=== PATIENT | male | born 1930 | race Caucasian/White ===

== ENCOUNTER → 2016-06-06 | Outpatient (CLI) | payer MEDICARE, BC ==
[~2016-06-06] MED LIST: CELE200C PO; COMMODE 3:1; ENAL10TA7 PO; GABA300C3 PO; HYDR-2768 PO; HYDR25TA5 PO; LUPR3.75 IM; MACR100C2 PO; METO50TA11 PO; OMEP20TA PO; PRAD150C PO; PRED-1 PO; TERA2CAP3 PO; WARF5TAB PO; WARF7.5T4 PO; [UNRECOGNIZED DRUG - CODE] IM
== END ==
LOC: CLAB 06:40
PROVIDERS: ATTEND Internal Medicine Cardiovascular Disease
DX: I48.91 Unspecified atrial fibrillation (principal)
CPT/HCPCS: 36415; 85610

== ENCOUNTER → 2016-06-07 | Outpatient (CLI) | payer MEDICARE, BC ==
[2016-06-07 07:12] LABS: INTERNATIONAL NORMALIZED RATIO 1.5 RATIO
== END ==
LOC: CLAB 06:45
PROVIDERS: ATTEND Internal Medicine Cardiovascular Disease
DX: I48.91 Unspecified atrial fibrillation (principal)
CPT/HCPCS: 36415; 85610

== ENCOUNTER → 2016-06-13 | Outpatient (CLI) | payer MEDICARE, BC ==
[2016-06-13 07:32] LABS: INTERNATIONAL NORMALIZED RATIO 2.6 RATIO; PROTHROMBIN TIME - PATIENT 30.1 SEC (9.8-11.6)
== END ==
LOC: CLAB 06:57
PROVIDERS: ATTEND Internal Medicine Cardiovascular Disease
DX: I48.91 Unspecified atrial fibrillation (principal)
CPT/HCPCS: 36415; 85610

== ENCOUNTER 2016-08-28 12:34 | Emergency (ER) | payer MEDICARE, BC ==
[~2016-08-28] VITALS: Ht 180.3 cm; Wt 90.0 kg
[~2016-08-28 12:34] MED LIST changes: -HYDR25TA5 PO; -LUPR3.75 IM; -MACR100C2 PO; -METO50TA11 PO; -PRAD150C PO
[2016-08-28 12:39] VITALS: BP 147/77; PULSE 76; RESP 15; TEMP 97.8; O2SAT 98
[2016-08-28 14:43] LABS: AUTOMATED NEUTROPHIL # 4.8 TH/MM3 (1.8-7.7); BASOPHIL # 0.1 TH/MM3 (0-0.2); BASOPHIL % 0.6 % (0.0-2.0); EOSINOPHIL # 0.3 TH/MM3 (0-0.4); EOSINOPHIL % 3.3 % (0.0-4.0); HEMATOCRIT 38.4 % (39.0-51.0); LYMPH % 39.9 % (9.0-44.0); LYMPHOCYTE # 3.9 TH/MM3 (1.0-4.8); MEAN CELL VOLUME 91.5 FL (80.0-100.0); MEAN CORPUSCULAR HEMOGLOBIN 30.2 PG (27.0-34.0); MONO % 6.9 % (0.0-8.0); NEUT % 49.3 % (16.0-70.0); PLATELET COUNT 98 TH/MM3 (150-450); RED BLOOD COUNT 4.19 MIL/MM3 (4.50-5.90); RED CELL DISTRIBUTION WIDTH 14.2 % (11.6-17.2); WHITE BLOOD COUNT 9.7 TH/MM3 (4.0-11.0)
[2016-08-28 14:47] LABS: HEMO FLAGS AUTO DIFF
[2016-08-28 15:00] LABS: BICARBONATE 29.9 MEQ/L (21.0-32.0); POTASSIUM 3.7 MEQ/L (3.5-5.1)
[2016-08-28 15:23] LABS: PLATELET ESTIMATE SMEAR LOW (NORMAL); PLATELET MORPHOLOGY NORMAL (NORMAL); SCAN/DIFF AUTO DIFF CONFIRMED
[2016-08-28 15:55] VITALS: BP 128/67; PULSE 86; RESP 17; O2SAT 99
[2016-08-28 16:07] LABS: BACTERIA, URINE FEW /hpf; BLOOD, URINE LARGE (NEG); GLUCOSE,URINE NEG (NEG); KETONE, URINE 10 mg/dL (NEG)
[2016-08-28 16:08] LABS: URINE COLOR DARK-RED (YELLW/STRAW)
[2016-08-28 16:20] LABS: NITRITE,URINE POS (NEG)
[2016-08-28] MEDS ORDERED: MACR100C2 PO ×2 (16:20→16:23)
--- NOTE | 2016-08-28 16:20 | PD ---
HPI Chief Complaint: Complaint Time Seen by Provider: 14:16 Travel History International Travel<30 days: No Contact w/Intl Traveler<30days: No Traveled to known affect area: No History of Present Illness HPI This is an 86-year-old male who presents to the emergency department with 10 days of aubrey hematuria described as dark blood in his urine, constant, moderate severity. He denies any associated lightheadedness or dizziness. He did start Pradaxa 6 weeks ago. He has a history of prostate cancer for which she follows with Dr. Shields. He doesn't follow with a urologist. He has never had radiation to the prostate. PFSH Past Medical History Hx Anticoagulant Therapy: Yes (coumidin) Arthritis: Yes Asthma: No Atrial Fibrillation: Yes Autoimmune Disease: No Blood Disorders: No Anxiety: No Depression: No Heart Rhythm Problems: Yes (ATRIAL FIB) Cancer: Yes (PROSTATE,LYMPHOMA,COLON) Cardiovascular Problems: Yes High Cholesterol: No Chemotherapy: No Chest Pain: No Congestive Heart Failure: No COPD: No Cerebrovascular Accident: No Diabetes: Yes Patient Takes Glucophage: Yes Diminished Hearing: No Endocrine: No GERD: No Genitourinary: Yes ( PROSTATE CANCER, TURP) Hepatitis: No Hiatal Hernia: No Hypertension: Yes Immune Disorder: No Implanted Vascular Access Dvce: Yes Kidney Stones: No Musculoskeletal: Yes (ARTHRITIS; NECK PAIN) Neurologic: No Psychiatric: No Reproductive: No Respiratory: No Migraines: No Myocardial Infarction: No Radiation Therapy: No Renal Failure: No Seizures: No Sickle Cell Disease: No Sleep Apnea: No Thyroid Disease: No Ulcer: No Tetanus Vaccination: Unknown Influenza Vaccination: Yes Past Surgical History Abdominal Surgery: Yes (COLON RESECTION) AICD: No Arteriovenous Shunt: No Body Medical Devices: NECK FUSION Cardiac Surgery: No Cholecystectomy: Yes Ear Surgery: No Endocrine Surgery: No Eye Surgery: Yes (TAMMY CATARACT EXTRACTION) Genitourinary Surgery: Yes (TURP) Gynecologic Surgery: No Insulin Pump: No Joint Replacement: Yes (BILATERAL KNEES) Neurologic Surgery: Yes (CERVICAL FUSION) Oral Surgery: No Pacemaker: No Thoracic Surgery: No Other Surgery: Yes (LEFT HIP JUL 2014) Social History Alcohol Use: Yes (OCCASIONALLY) Tobacco Use: No Substance Use: No Allergies-Medications (Allergen,Severity, Reaction): Coded Allergies: No Known Allergies (Unverified , 08/28/16) Reported Meds & Prescriptions Reported Meds & Active Scripts Active Omeprazole 20 mg (Omeprazole) 20 Mg Tab 1 Tab PO DAILY Celebrex (Celecoxib) 200 Mg Cap 200 Mg PO DAILY 7 Days Terazosin Hcl (Terazosin HCl) 2 Mg Cap 2 Mg PO HS Prednisolone 5 Mg Tab 5 Mg PO DAILY Hctz (Hydrochlorothiazide) 25 Mg Tab 25 Mg PO HS Commode 3:1 (Device) Device 1 Ea Reported Gabapentin 300 Mg Cap 300 Mg PO BID Enalapril Maleate 10 Mg Tab 20 Mg PO BID Lupron Depot (Leuprolide Acetate) 3.75 Mg Inj 3.75 Mg IM EVERY 3 MONTHS Warfarin Sodium 5 mg (Warfarin Sodium) 5 Mg Tab 5 Mg PO M, W, SUN, SUN, SUN Warfarin Sodium 7.5 mg (Warfarin Sodium) 7.5 Mg Tab 7.5 Mg PO , Review of Systems Except as stated in HPI: all other systems reviewed are Neg Physical Exam Narrative GENERAL:Well appearing, no acute distress SKIN: Warm and dry. HEAD: Atraumatic. Normocephalic. EYES: Pupils equal and round. No injection or drainage. ENT: Moist mucous membranes NECK: Trachea midline. CARDIOVASCULAR: Regular rate and rhythm. No murmur appreciated. RESPIRATORY: Clear to auscultation. Breath sounds equal bilaterally. GASTROINTESTINAL: Abdomen soft, non-tender, nondistended. : Aubrey blood in urine MUSCULOSKELETAL: No obvious deformities. NEUROLOGICAL: Awake and alert. No obvious cranial nerve deficits. Moving all extremities. PSYCHIATRIC: Appropriate mood and affect; insight and judgment normal. Data Data Last Documented VS Vital Signs Date Time Temp Pulse Resp B/P Pulse Ox O2 Delivery O2 Flow Rate FiO2 08/28/16 15:55 86 17 128/67 99 Room Air 08/28/16 12:39 97.8 Orders Complete Blood Count With Diff (08/28/16 14:26) Urinalysis - C+S If Indicated (08/28/16 14:26) Basic Metabolic Panel (Bmp) (08/28/16 14:26) Labs Laboratory Tests Test 08/28/16 14:20 White Blood Count 9.7 TH/MM3 Red Blood Count 4.19 MIL/MM3 Hemoglobin 12.7 GM/DL Hematocrit 38.4 % Mean Corpuscular Volume 91.5 FL Mean Corpuscular Hemoglobin 30.2 PG Mean Corpuscular Hemoglobin 33.0 % Concent Red Cell Distribution Width 14.2 % Platelet Count 98 TH/MM3 Mean Platelet Volume 10.9 FL Neutrophils (%) (Auto) 49.3 % Lymphocytes (%) (Auto) 39.9 % Monocytes (%) (Auto) 6.9 % Eosinophils (%) (Auto) 3.3 % Basophils (%) (Auto) 0.6 % Neutrophils # (Auto) 4.8 TH/MM3 Lymphocytes # (Auto) 3.9 TH/MM3 Monocytes # (Auto) 0.7 TH/MM3 Eosinophils # (Auto) 0.3 TH/MM3 Basophils # (Auto) 0.1 TH/MM3 CBC Comment AUTO DIFF Differential Comment AUTO DIFF CONFIRMED Platelet Estimate LOW Platelet Morphology Comment NORMAL Red Cell Morphology Comment NORMAL Sodium Level 141 MEQ/L Potassium Level 3.7 MEQ/L Chloride Level 103 MEQ/L Carbon Dioxide Level 29.9 MEQ/L Anion Gap 8 MEQ/L Blood Urea Nitrogen 32 MG/DL Creatinine 1.57 MG/DL Estimat Glomerular Filtration 42 ML/MIN Rate Random Glucose 118 MG/DL Calcium Level 9.5 MG/DL MDM Medical Decision Making Medical Screen Exam Complete: Yes Emergency Medical Condition: Yes Interpretation(s) No leukocytosis 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 He is well-appearing on exam. Vital signs are reassuring. He is not anemic on blood work. I spoke to Dr. Keys who was amenable to holding the patient's Pradaxa until the bleeding subsides. Patient will be referred to urology and started on empiric antibiotics for possible cystitis. Diagnosis Primary Impression: Hematuria Referrals: Juan F Vang MD Patient Instructions: General Instructions Additional Instructions: If you develop severe abdominal pain, inability to urinate, lightheadedness or dizziness return to the emergency room. Hold your Pradaxa until your follow-up with a urologist. It is Very important that he see a urologist as we always consider bladder cancer as a possibility when patient's have bleeding in their urine. Med/Other Pt SpecificInfo: Prescription(s) given Scripts Nitrofurantoin Monohydrate Macrocrystals (Macrobid)100 Mg [id number] Mg PO BID 7 Days Prov:Rosy Florez MD 08/28/16 Disposition: 01 DISCHARGE HOME Condition: Stable Rosy Florez MD Aug 28, 2016 16:20
[2016-08-28 16:22] LABS: COMMENT (UR) CULTURE INDICATED; CULTURE IF INDICATED CULTURE INDICATED
[2016-08-28 16:55] VITALS: BP 120/78; TEMP 97.8
[2016-09-06] MEDS ORDERED: PRAD150C PO (14:48)
[2016-09-06] MEDS ORDERED: HYDR25TA5 PO (14:48)
[2016-09-06] MEDS ORDERED: METO50TA11 PO (14:48)
[2016-09-06] MEDS ORDERED: TERA2CAP3 PO (14:48)
[2016-09-06] MEDS ORDERED: LUPR3.75 IM (14:48)
== END 2016-08-28 16:55 | disposition home or self-care (01) ==
LOC: NEPA 12:34
DX: R31.9 Hematuria, unspecified (principal); Z79.01 Long term (current) use of anticoagulants; I48.91 Unspecified atrial fibrillation; E11.9 Type 2 diabetes mellitus without complications; I10 Essential (primary) hypertension
CPT/HCPCS: 80048; 81001; 85025; 87077; 87086; 87186; 99283

== ENCOUNTER → 2017-09-11 | Outpatient (CLI) | payer MEDICARE, BC ==
[~2017-09-11] MED LIST changes: -CELE200C PO; -ENAL10TA7 PO; -GABA300C3 PO; -HYDR-2768 PO; +HYDR25TA5 PO; +LUPR3.75 IM; +METO1TAB9 PO; -OMEP20TA PO; +PRAD150C PO; -PRED-1 PO; -WARF5TAB PO; -WARF7.5T4 PO; -[UNRECOGNIZED DRUG - CODE] IM
[2017-09-11 10:54] LABS: HEMATOCRIT 37.4 % (39.0-51.0); HEMOGLOBIN 12.5 GM/DL (13.0-17.0); MEAN CELL VOLUME 93.2 FL (80.0-100.0); MEAN CORPUSCULAR HEMOGLOBIN 31.1 PG (27.0-34.0); MEAN CORPUSCULAR HGB CONC 33.3 % (32.0-36.0); MEAN PLATELET VOLUME 10.3 FL (7.0-11.0); PLATELET COUNT 66 TH/MM3 (150-450); RED BLOOD COUNT 4.01 MIL/MM3 (4.50-5.90); RED CELL DISTRIBUTION WIDTH 14.2 % (11.6-17.2); WHITE BLOOD COUNT 8.3 TH/MM3 (4.0-11.0)
[2017-09-11 11:01] LABS: BILIRUBIN, URINE NEG (NEG); BLOOD, URINE LARGE (NEG); GLUCOSE,URINE NEG (NEG); KETONE, URINE NEG (NEG); NITRITE,URINE NEG (NEG); URINE LEUKOCYTE ESTERASE TRACE (NEG)
[2017-09-11 11:04] LABS: URINE COLOR LIGHT-RED (YELLW/STRAW)
[2017-09-11 11:05] LABS: BACTERIA, URINE RARE /hpf
[2017-09-11 12:17] LABS: LYMPHOCYTES 38 % (9-44); MONOCYTES 3 % (0-8); NEUTROPHIL # MANUAL DIFF 4.8 TH/MM3 (1.8-7.7); POLYS (SEG NEUTROPHILS) 58 % (16-70)
[2017-09-11 12:58] LABS: BICARBONATE 31.1 MEQ/L (21.0-32.0); CALCIUM 9.1 MG/DL (8.5-10.1); CREATININE 1.54 MG/DL (0.60-1.30)
== END ==
LOC: CLAB 10:25
PROVIDERS: ATTEND Internal Medicine Cardiovascular Disease
DX: C61 Malignant neoplasm of prostate (principal); I48.91 Unspecified atrial fibrillation
CPT/HCPCS: 36415; 80048; 81001; 85007; 85027

== ENCOUNTER → 2017-10-17 | Outpatient (CLI) | payer MEDICARE, BC | LOC: CLAB 07:13 | PROVIDERS: ATTEND Urology | DX: C61 Malignant neoplasm of prostate (principal) | CPT/HCPCS: 36415; 84153 ==